=== PATIENT | female | born 1970 | race Caucasian/White ===

== ENCOUNTER → 2017-05-20 | Outpatient (CLI) | payer OTHER ==
--- NOTE | ~2017-05-20 | CR7 ---
[facility] A Service of [facility] RADIOLOGY TEXT RESULTS PATIENT: KUMAR PITTS LOCATION: [facility] : 74 UNIT #: [id number] AGE: [address]: Kwabena Craig MD SEX: F ORDER DR: [id number] [facility]. [place], [place] [address] [id number] O MR#: [id number] Acc #: [id number] NAME: KUMAR PITTS : 1970 SEX: F STUDY DATE/TIME: 05/20/2017 11:58 UNIT: [facility] ROOM: STUDY DESCRIPTION: CR Abdomen Single AP View Attending Physician: Kwabena Craig M.D. Referring Physician: Kwabena Craig M.D. Ordering Physician: Kwabena Craig M.D. Primary Care Physician: Arelis Valentino MEDICAL IMAGING REPORT This report is preliminary unless electronic signature is present EXAM Abdomen. INDICATIONS Kidney stones with right-sided abdominal pain for 6 days. History of kidney stones. FINDINGS Supine view of the abdomen is obtained. Bowel gas pattern is normal. No renal stones are visible. There is a calcification in the right side of the pelvis that is nonspecific. It is about 2-3 mm in diameter and could be a distal ureteral stone or a phlebolith. There are no old studies. The bones are normal. IMPRESSION Nonspecific 2-3 mm calcification in the right side of the pelvis. It could represent a distal ureteral stone or a phlebolith. Otherwise, the study is normal. Dictated by... Lasha Liao M.D. THIS IS AN ELECTRONICALLY VERIFIED REPORT Lasha Liao M.D. at 05/22/2017 7:37 AM EVANGELINA/milan TD: 05/21/2017 19:12 JOB #: [id number] MEDICAL IMAGING REPORT [facility] A Service of [facility] RADIOLOGY TEXT RESULTS PATIENT: KUMAR PITTS LOCATION: [facility] : 74 UNIT #: [id number] AGE: [address]: Kwabena Craig MD SEX: F ORDER DR: Page 1 of 1 COPY
== END | disposition home or self-care (01) ==
LOC: CRAD 11:45
DX: N20.0 Calculus of kidney (principal); N94.89 Other specified conditions associated with female genital organs and menstrual cycle
CPT/HCPCS: 74000